=== PATIENT | male | born 1970 | race Caucasian/White ===

== ENCOUNTER → 2023-06-25 15:33 | Outpatient (REF) | payer BC, SELFPAY | LOC: HWRAD 15:33 | PROVIDERS: ATTENDING PHYSICIAN Family Medicine | DX: J40 Bronchitis, not specified as acute or chronic (principal); J45.41 Moderate persistent asthma with (acute) exacerbation; J01.40 Acute pansinusitis, unspecified | CPT/HCPCS: 71046 ==

== ENCOUNTER → 2023-07-26 15:48 | Outpatient (REF) | payer BC, SELFPAY | LOC: HWRAD 15:48 | PROVIDERS: ATTENDING PHYSICIAN Family Medicine | DX: J40 Bronchitis, not specified as acute or chronic (principal); J01.40 Acute pansinusitis, unspecified | CPT/HCPCS: 71046 ==

== ENCOUNTER → 2023-09-02 06:38 | Day surgery (SDC) | payer BC, SELFPAY | LOC: GI 06:38 | PROVIDERS: ATTENDING PHYSICIAN Internal Medicine | DX: R19.5 Other fecal abnormalities (principal); Z12.11 Encounter for screening for malignant neoplasm of colon; D12.3 Benign neoplasm of transverse colon; D12.5 Benign neoplasm of sigmoid colon; K63.5 Polyp of colon | CPT/HCPCS: 45385; 45380; 88305 ==

== ENCOUNTER → 2023-09-20 13:50 | Outpatient (REF) | payer BC, SELFPAY | LOC: HWRCS 13:50 | PROVIDERS: ATTENDING PHYSICIAN Internal Medicine Cardiovascular Disease; FAMILY PHYSICIAN Family Medicine | DX: R01.1 Cardiac murmur, unspecified (principal); I10 Essential (primary) hypertension | CPT/HCPCS: 93306 ==

== ENCOUNTER 2023-09-26 06:42 | Day surgery (SDC) | payer BC, SELFPAY ==
[2023-09-26] VITALS (9 sets, daily range): BP systolic 109–127; BP diastolic 56–77; BMI 24.9
[2023-09-26 07:17] LABS: Hematocrit 38.6 % (39.0-52.0); Hemoglobin 13.5 g/dL (13.0-18.0); Mean Corpuscular Hgb 26.9 pg (27.0-31.0); Mean Corpuscular Volume 76.9 fL (80.0-94.0); Platelet Count 247 10^3/uL (130-400); Red Blood Cell Count 5.02 10^6/uL (4.70-6.10); Red Cell Dist. Width 14.1 % (11.5-14.5); White Blood Cell Count 5.3 10^3/uL (4.8-10.8)
[2023-09-26 07:28] LABS: Blood Urea Nitrogen 20 mg/dl (9-20); Calcium 9.4 mg/dl (8.4-10.2); Carbon Dioxide 24 mmol/L (22-30); Chloride 109 mmol/L (98-107); Estimated Creatinine Clearance 112 ml/min; Glucose 108 mg/dl (70-99); Potassium 4.6 mmol/L (3.5-5.1); Sodium 139 mmol/L (135-145); eGFR > 60.00
[2023-09-26] MEDS: LOW STRENGTH ASPIRIN 324 MG PO (07:54)
--- NOTE | 2023-09-26 09:19 | ITS.CL.CATH ---
[employer] - Catheterization
Cardiac Catheterization
Procedure Report:
LEFT AND RIGHT HEART CATHETERIZATION
Date of Procedure: September 26, 2023
Referring: Anthony Simmons
PROCEDURES:
1. Left heart catheterization, coronary angiogram.
2. Right heart catheterization.
3. Ultrasound-guided access
INDICATION: Severe mitral regurgitation, preoperative for mitral valve repair/replacement
ACCESS:
1. Right radial artery, 6 1 sheath, under ultrasound guidance.
2. Right brachial vein, 6 Setswana sheath
HEMODYNAMICS : (mmHg)
RA (m) : 9
RV (s/d,m) : 26/, 9
PA (s/d, m) : 25/, 17
PCWP (m) : 16
PA saturation: 67.7% on room air
AO saturation: 95.0% on room air
RA saturation: 64.8% on room air
Cardiac Output : 4.49 L/min
Cardiac Index : 2.03 L/min/m-2
Systemic vascular resistance: 1086 dsc^(-5)
Pulmonary vascular resistance: 1.01 ritchie unit
Heart rate: 54 bpm
AO (s/d) : 105/60
LV (s/d) : 97/10
LVEDP : 20
CORONARY FINDINGS
DOMINANCE: Codominant
LEFT MAIN: Left main artery is a large-caliber vessel gives rise to the left anterior descending artery and the left circumflex artery along with a small ramus intermedius branch. Angiographically normal coronary artery.
LEFT ANTERIOR DESCENDING: The left anterior descending artery is a medium to large caliber vessel which gives rise to 1 major diagonal branch as it courses to the anterior interventricular groove and wraps around the apex. Angiographically normal
vessel
CIRCUMFLEX: The left circumflex artery is a medium to large caliber, codominant vessel which gives rise to 2 major obtuse marginal branches and a little left posterior descending artery. Angiographically normal coronary.
RAMUS INTERMEDIUS: The ramus intermedius artery is a small caliber vessel with no angiographic coronary artery disease.
RIGHT CORONARY ARTERY: The right coronary artery is a small caliber, co-dominant vessel with no angiographic coronary artery disease
SEDATION: 45 minutes of procedural sedation was utilized. An independent medical device was present to assist with and help manage the patient's level of consciousness and physiologic status.
RADIATION SUMMARY: Fluoro Time (min): 4.7, Dose (mGy): 231.96, DAP (Gy.cm2) : 17.16
Closure Device:
1. Vascular band over the right radial artery, 10 cc of air.
2. Manual pressure was held over the right brachial venous access site with successful hemostasis.
CONCLUSIONS
1. No obstructive coronary artery disease.
2. Elevated right and left-sided filling pressures with normal cardiac output.
RECOMMENDATIONS
1. Ongoing management of cardiovascular risk factors.
2. Wean radial band per protocol.
3. Patient is scheduled to see Dr. Lopez Desai next September for surgical evaluation.
Copy to: Anthony Simmons MD and Lopez Desai MD
Jeana Ramos MD, [facility], [facility]
== END 2023-09-26 13:31 | disposition home or self-care (01) ==
LOC: CATH 06:42
PROVIDERS: Internal Medicine Interventional Cardiology; ATTENDING PHYSICIAN Internal Medicine Cardiovascular Disease; FAMILY PHYSICIAN Family Medicine; OTHER PHYSICIAN Internal Medicine Cardiovascular Disease
DX: I08.3 Combined rheumatic disorders of mitral, aortic and tricuspid valves (principal); I08.8 Other rheumatic multiple valve diseases; I70.0 Atherosclerosis of aorta; I31.39 Other pericardial effusion (noninflammatory)
CPT/HCPCS: 93312; 93320; 93325; 99152; 99153; 80048; 85027; 93460; C1894; Q9967

== ENCOUNTER → 2023-10-09 11:40 | Outpatient (REF) | payer BC, SELFPAY | LOC: RAD 11:40 | PROVIDERS: ATTENDING PHYSICIAN Thoracic Surgery (Cardiothoracic Vascular Surgery) | DX: I34.0 Nonrheumatic mitral (valve) insufficiency (principal) | CPT/HCPCS: 71275; 74174; Q9967 ==

== ENCOUNTER 2023-10-14 05:08 | Inpatient (IN) | payer BC, SELFPAY ==
[2023-10-08 08:31] VITALS: BMI 25.3
[2023-10-08 09:37] LABS: INR 1.03; PT 13.3 Sec (11.4-14.6)
[2023-10-08 09:38] LABS: APTT 29.7 Sec (23.4-35.0)
[2023-10-08 09:52] LABS: ALT (SGPT) 19 U/L (0-50); AST (SGOT) 25 U/L (17-59); Albumin 4.3 g/dl (3.5-5.0); Alkaline Phosphatase 58 U/L (38-126); Blood Urea Nitrogen 16 mg/dl (9-20); Calcium 9.7 mg/dl (8.4-10.2); Carbon Dioxide 29 mmol/L (22-30); Chloride 107 mmol/L (98-107); Estimated Creatinine Clearance 111 ml/min; Glucose 105 mg/dl (70-99); Potassium 4.5 mmol/L (3.5-5.1); Sodium 139 mmol/L (135-145); Total Bilirubin 0.7 mg/dl (0.2-1.3); Total Protein 6.8 g/dl (6.3-8.2); eGFR > 60.00
[2023-10-08 09:55] LABS: % Basophils 0.9 % (0-2); % Eosinophils 2.2 % (0-6); % Immature Granulocytes 0.2 % (0-0.5); % Lymphocytes 33.3 % (20.5-51.1); % Monocytes 6.9 % (1.7-9.3); % Neutrophils 56.5 % (42.2-75.2); Absolute Basophils 0.1 10^3/uL (0-0.2); Absolute Eosinophils 0.1 10^3/uL (0-0.7); Absolute Lymphocytes 1.8 10^3/uL (1.2-3.4); Absolute Monocytes 0.4 10^3/uL (0.1-0.6); Hematocrit 41.4 % (39.0-52.0); Hemoglobin 13.9 g/dL (13.0-18.0); Mean Corp Hgb Conc. 33.6 g/dL (33.0-37.0); Mean Corpuscular Volume 80.4 fL (80.0-94.0); Mean Platelet Volume 10.1 fL (7.4-10.4); Nucleated Red Blood Cells % 0 % (-); Platelet Count 227 10^3/uL (130-400); Red Blood Cell Count 5.15 10^6/uL (4.70-6.10); Red Cell Dist. Width 13.6 % (11.5-14.5); White Blood Cell Count 5.3 10^3/uL (4.8-10.8)
[2023-10-08 10:20] LABS: Glycohemoglobin (HgbA1c) 5.5 % (4.0-5.6)
--- NOTE | 2023-10-08 10:52 | CM ---
spoke to pt in PAT's we disc used preop MVR teaching including lifting and driving restrictions. he is prev indep, lives with his in a 2 story home with 7 steps to enter. he has the ct surgery book, soap and instructions. he is agreeable to a
f/u visit from the ct transitional care nurse after dc. cm role explained and all questions answered, gustavo nis for MVR via [employer] 10/13.
[2023-10-08 12:17] LABS: Urine Albumin Negative (Neg - Trace); Urine Bilirubin Negative (Negative); Urine Character Clear (Clear); Urine Color Yellow; Urine Glucose Negative (Negative); Urine Ketone Negative (Negative); Urine Leukocyte Negative (Negative); Urine Nitrite Negative (Negative); Urine Occult Blood Negative (Negative); Urine Specific Gravity 1.015 (<1.030); Urine Urobilinogen Negative (Neg - 1+); Urine pH 6.5 (5.0-9.0)
--- NOTE | 2023-10-13 21:17 | W.PN.CT ---
Assessment / Plan
-
Assessment:
-S/P Right mini thoracotomy with right femoral artery and vein cannulation under NELSON guidance/Radical mitral valve repair (quadrangular resection of the medial portion of P2 on to P3 with primary repair, cleft closure between P1 and P2, 40 mm band
annuloplasty), by Dr. Desai, 10/14/23, pod#1
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
-LVEF 65% per echo 09/26/23, 55-60% per intraop NELSON
-Small pericardial effusion per echo 09/26/23; no pericardial effusion per intraop NELSON
-HTN
-Sinus bradycardia per ekg 10/08/23
-Incidental findings on CT from 10/09/23: small right fissure pulmonary nodules (2.8-4.4 mm), small left adrenal nodule (7mm), B/L renal cysts
-Diverticulosis
-Colon polyps S/P hepatic flexure and sigmoid polypectomies (tubular adenoma), 09/02/23
-S/P Left ACL Repair, 08/22/21
-Acute postop blood loss/Anemia (received 500cc of cell saver blood intraop)
-Acute postop atelectasis
-Acute postop hypovolemia with subsequent hypervolemia
-Acute postop sinus bradycardia (as low as 53 bpm)
Plan:
-No major issues overnight. Hemodynamically and neurologically intact
-Successfully extubated in the OR on 10/14/23
-Weaned off Levophed gtt overnight, remains on insulin gtt per protocol
-Last CI , U/O since OR
-Cont. current meds (ASA, both Amiodarone and BB on hold given
-D/C'd zaira yesterday 10/13
-D/C'd A-line this AM @
-D/C'd ana paula this AM @ 0600
-Telemetry phase once off insulin today
-Monitor chest tube drainage: R pleural
-Maintain cordis
-Maintain temporary V wires (will pull before d/c home)
-OOB into chair/Ambulate
-Will obtain repeat echo to assess MV Repair prior to d/c home
Subjective
-
Date of Service: October 13, 2023
Objective Data
-
Lab Results
10/08/23 08:48
10/08/23 08:48
PT 13.3 Sec (11.4-14.6) 10/08/23 08:48
INR 1.03 10/08/23 08:48
APTT 29.7 Sec (23.4-35.0) 10/08/23 08:48
[2023-10-14] VITALS (16 sets, daily range): BP systolic 96–137; BP diastolic 62–99; BMI 24.0
[2023-10-14] MEDS: PROTONIX 40 MG PO (05:45)
[2023-10-14] MEDS: LOPRESSOR 25 MG PO (05:45)
[2023-10-14] MEDS: BACTROBAN 2% OINTMENT 1 APPLIC NASAL ×2 (05:46→19:48)
[2023-10-14] MEDS: MAGNESIUM OXIDE 500 MG PO (05:46)
--- NOTE | 2023-10-14 06:51 | W.CVOR.SURPR ---
CVOR Surgeon Immed Pre Op
-
I have examined this patient prior to performance of the scheduled procedure.
The patient's condition is unchanged from the time of the dictated/written History and
Physical and the patient is able to undergo the scheduled procedure.
MV repair
[2023-10-14 07:12] LABS: ACT+ - POC 101 Seconds (82-134)
[2023-10-14 07:24] LABS: Urine Albumin Negative (Neg - Trace); Urine Bilirubin Negative (Negative); Urine Character Clear (Clear); Urine Color Yellow; Urine Glucose Negative (Negative); Urine Ketone Negative (Negative); Urine Leukocyte Negative (Negative); Urine Nitrite Negative (Negative); Urine Occult Blood Trace (Negative); Urine Urobilinogen Negative (Neg - 1+)
--- NOTE | 2023-10-14 07:25 | PTCARENOTE ---
Prepped patient for MVR this AM. VSS. NPO since 1900 previous day. Clipped and chg wipes provided. Preop meds administered. Patient transported to [facility] at 0635
[2023-10-14 08:00] LABS: Urine Bacteria Few (Negative); Urine Squamous Cell 0-2 /LPF (Few)
[2023-10-14 08:01] LABS: Urine White Cell 0-2 /HPF (0-5)
[2023-10-14 08:23] LABS: ACT+ - POC 535 Seconds (82-134)
[2023-10-14 08:44] LABS: B.E. - POC -1.2 mmol/L; Glucose - POC 122 mg/dl (65-99); HCO3 - POC 25 mmol/L (21-29); Hematocrit - POC 37 % PCV (42-52); Hemodilution- POC Yes; Hemoglobin Calculated - POC 12.7; Ionized Calcium - POC 1.27 mmol/L (1.12-1.27); O2 Saturation %Calculated-POC 99.9 5 (92-96); PCO2 - POC 49 mmHg (35-45); PO2 - POC 285 mmHg (80-100); POC Comment PRE; Potassium - POC 3.9 mmol/L (3.6-5.0); Sodium - POC 136 mmol/L (135-145); pH - POC 7.32 (7.35-7.45)
[2023-10-14 08:55] LABS: ACT+ - POC 596 Seconds (82-134)
[2023-10-14 09:10] LABS: B.E. - POC 1.5 mmol/L; Glucose - POC 148 mg/dl (65-99); HCO3 - POC 30 mmol/L (21-29); Hematocrit - POC 29 % PCV (42-52); Hemodilution- POC Yes; Hemoglobin Calculated - POC 9.9; O2 Saturation %Calculated-POC 99.9 5 (92-96); PCO2 - POC 67 mmHg (35-45); PO2 - POC 323 mmHg (80-100); POC Comment CPB; Sodium - POC 136 mmol/L (135-145); pH - POC 7.26 (7.35-7.45)
[2023-10-14 09:21] LABS: ACT+ - POC 539 Seconds (82-134)
[2023-10-14 09:50] LABS: B.E. - POC 1.2 mmol/L; Glucose - POC 179 mg/dl (65-99); HCO3 - POC 26 mmol/L (21-29); Hematocrit - POC 33 % PCV (42-52); Hemodilution- POC Yes; Hemoglobin Calculated - POC 11.2; Ionized Calcium - POC 1.09 mmol/L (1.12-1.27); O2 Saturation %Calculated-POC 97.7 5 (92-96); PCO2 - POC 42 mmHg (35-45); PO2 - POC 98 mmHg (80-100); POC Comment CPB; Potassium - POC 5.8 mmol/L (3.6-5.0); Sodium - POC 137 mmol/L (135-145); pH - POC 7.41 (7.35-7.45)
[2023-10-14 10:02] LABS: ACT+ - POC 566 Seconds (82-134)
[2023-10-14 10:31] LABS: B.E. - POC -0.8 mmol/L; Glucose - POC 144 mg/dl (65-99); HCO3 - POC 25 mmol/L (21-29); Hematocrit - POC 35 % PCV (42-52); Hemodilution- POC Yes; Hemoglobin Calculated - POC 11.9; Ionized Calcium - POC 1.14 mmol/L (1.12-1.27); PCO2 - POC 45 mmHg (35-45); PO2 - POC 408 mmHg (80-100); POC Comment WARM; Potassium - POC 5.2 mmol/L (3.6-5.0); Sodium - POC 138 mmol/L (135-145); pH - POC 7.35 (7.35-7.45)
[2023-10-14 10:38] LABS: ACT+ - POC 109 Seconds (82-134)
--- NOTE | 2023-10-14 10:49 | W.PN.UPDATE ---
Update Note
Progress Note Update
IV fluids: 1000
U.O.:� 400
UF:� 2500
Blood:� None
Wires:� Ventricular
Inotropes:� None
Pressors:� Levophed
�
NEURO: pupils +3mm B/L
RESP: Extubated in the OR. Arrived on NRB. Mediastinal chest tubes to -20cm suction. Sanguineous drainage
CV: RRR +S1, S2, no S3, no�rub, no murmur. Dermabond to median sternotomy. RIJ w/Haskell locked @ 48cm.
ABD: round, soft, no BS
EXT: no edema, +2/4 DP pulses B/L, no femoral bruit, XX radial A-line intact
: Mosqueda with clear yellow urine
�
A/P: POD #0 s/p Radical mitral valve repair (quadrangular resection of the medial portion of P2 on to P3 with primary repair, cleft closure between P1 and P2, 40 mm band annuloplasty)
NELSON: EF�NML
- Monitor CT and urine output
- Follow up labs and CXR
- Wean levophed for maps >65
- Will start ASA tonight
- EKG pending and will send to cards
-Will need follow-up TTE prior to discharge
- Cards consulted
�
# acute surgical blood loss anemia-expected
- trend CBC
�
# post-op Hyperglycemia
- insulin infusion x 24h
- hgb A1c 5.5
�
[2023-10-14 10:59] LABS: B.E. - POC -3.7 mmol/L; Glucose - POC 110 mg/dl (65-99); HCO3 - POC 23 mmol/L (21-29); Hematocrit - POC 34 % PCV (42-52); Hemodilution- POC Yes; Hemoglobin Calculated - POC 11.5; Ionized Calcium - POC 1.38 mmol/L (1.12-1.27); O2 Saturation %Calculated-POC 85.9 5 (92-96); PCO2 - POC 45 mmHg (35-45); PO2 - POC 57 mmHg (80-100); POC Comment POST; Potassium - POC 4.6 mmol/L (3.6-5.0); Sodium - POC 139 mmol/L (135-145); pH - POC 7.31 (7.35-7.45)
--- NOTE | 2023-10-14 11:13 | W.PN.CT.SURG ---
Addendum entered and electronically signed by Lopez Desai MD 10/14/23 11:30:
Products: 2 bowls of Cell Saver Blood was given back to the patient (500cc)
Original Note:
CT Surgery Operative Note
-
CARDIAC SURGERY OPERATIVE REPORT
Preoperative Diagnosis: Myxomatous mitral valve degeneration with severe mitral valve insufficiency secondary to prolapse and multiple torn cords
Postoperative Diagnosis: Same
Procedure(s) Performed:
1. Right mini thoracotomy with right femoral artery and vein cannulation under NELSON guidance
2. Radical mitral valve repair (quadrangular resection of the medial portion of P2 on to P3 with primary repair, cleft closure between P1 and P2, 40 mm band annuloplasty)
3. Placement temporary ventricular pacing wires
4. Trans esophageal echocardiography
Date of Surgery: 10/14/2023
Comorbidities:
1. 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
2. Preserved left ventricular ejection fraction of though end-systolic diameters was dilated to 5.5 cm under anesthesia
3. Hypertension
Attending Surgeon: Lopez Desai MD, MS
Assistants: Beti Grove PA-C (present and necessary for retraction, suctioning, exposure, suture management, wound closure, etc. under my direction)
Anesthesiology: Vasiliy Gan MD and Soco Kirby CRNA
Scrub and Circulating RNs: Gita Velazquez RN, Sarabjit Lundberg RN
Java User Interface Developer: Beti Salcido CCP
Anesthesia: GETA
EBL: per perfusion records
Products: None
CPB Time: 115 minutes
Aortic Cross Clamp Time: 86 minutes
Indication(s) for Procedures: This is a 53-year-old male who is otherwise healthy. He has severe mitral valve degeneration with insufficiency with a mildly dilated left ventricle with preserved left ventricular ejection fraction. Although he was
asymptomatic, I felt that he was bordering C2/D symptomatology given his echo changes. He therefore met class IIa bordering class I indication for surgical intervention.
Mitral Valve Description: Dilated valve, thickened segments of the anterior plate and posterior leaflet mostly towards P2 P3, P2 was abnormal with almost a split down the middle of the leaflet with multiple torn cords towards the free margin.
Mostly abnormality headed towards the medial aspect of the valve. P1 appeared to be normal. P3 was mildly thickened. There is a large clot between P1 and P2. Of note on transesophageal echocardiography the left circumflex was extremely close to
the annulus.
Implants:
1. 40 mm Olivier physio flex annuloplasty band, SN [id number]
Specimen:
1. Posterior leaflet, P2 scallop with multiple torn cords
Findings: Left ventricular ejection fraction preoperatively was 60%. His EF remained the same following surgery. Of note his left ventricle is mildly dilated with an end-systolic diameter of 5.5 cm. This remained the same postoperatively with no
new regional wall motion abnormalities. His mitral valve was abnormal in appearance, it almost had a split P2 scallop with multiple torn cords at the free margin. Most the abnormality headed towards the medial portion of the valve. The midportion
heading towards P3 was resected in a quadrangular resection pattern. This was then primarily repaired with plication of the leaflet in order to promote a downward sail effect. There is also a large cleft between P1 and P2 which was approximate
with 5-0 Prolene in an interrupted fashion. The valve was sized true to the anterior leaflet and also from trigone to trigone to a 40 mm band. A total of 13 nonpledgeted 2 Ethibond sutures were placed with care to avoid the left circumflex from
trigone to trigone. The band was secured to place with core knots. Dynamic inflation the left ventricle with ink test demonstrated a coaptation margin of the least 8 mm to 1 cm and a good posterior coaptation margin. Coming off of cardiopulmonary
bypass he had no residual mitral valve sufficiency, a mean gradient of 1 across the valve, and unobstructed LVOT with no systolic anterior motion. He did not require any blood products and did not require any inotropic support. He was in sinus
rhythm.
Description of Procedure: The patient was brought to the operating room and placed supine in the table with their right side bumped up and right arm down. Arterial and central access was performed by anesthesiology. The patient was prepped from chin
to toes in the typical sterile fashion. Trans esophageal evaluation of cardiac function and all valvular structures was conducted. Before commencing, a time out was performed by all members of the team. All were in agreement with the procedure and
laterality and I proceeded. A small right groin incision was made to expose the common femoral artery and vein. A total of 46,000 units of heparin was given. A 5-6 cm right lateral thoracotomy was performed over the 4th intercostal space verified by
visualization of the hilum. The common femoral artery and vein were cannulated under transesophageal guidance using open Seldinger technique. The arterial line was verified to have an appropriate bounce and pressure correlating with testing. Once
the ACT was above 400, retrograde autologous priming was done and we commenced cardiopulmonary bypass. Target core temperature was 34�C.
Carbon dioxide was used to flood the field. The course of the phrenic nerve was identified to prevent injury. The pericardium was opened and two stay sutures were placed to facilitate a ``pericardial table.�� The oblique sinus was developed followed
by the inter atrial groove. An antegrade root vent was inserted and secured with a pursestring suture. The pump flow and mean arterial pressure were lowered and an aortic cross clamp was applied to the ascending aorta. A total of 1.2L initial dose
of Antegrade cardioplegia was delivered. We had rapid electro myocardial quiescence at 400 cc of cardioplegia. The ventricle was monitored for distension by echocardiogram during this time. The left atrium was incised and enlarged. A left atrial
lift retractor was placed. The mitral valve was inspected. The mitral valve was repaired as described above. The left atriotomy was closed with 3-0 prolene in a running fashion leaving a ventricular vent in place to de-air. After filling the heart,
the vent was removed and the prolene was secured with a corknot. Unipolar ventricular pacing wire was placed on the base of the right ventricle. The patient was placed into Trendelenburg position and pump flows were lowered. The clamp was slowly
removed with the root vent turned on. De-airing maneuvers were performed. We started to rewarm with a target of 36.5�C.
As the heart recovered, the mitral valve and ventricular function were assessed under transesophageal echocardiogram. The LV vent and root vents were removed. Once weaning parameters were satisfactory, cardiopulmonary bypass flow was lowered until
we were off cardiopulmonary bypass the mitral valve was inspected again. All surgical sites were inspected for hemostasis and appeared appropriate. The lines were clamped and the arterial was relocated to the venous cannula to give back volume. A
test dose of protamine was delivered and patient was monitored for any adverse reactions followed by complete protamine dosing. The femoral vessels were decannulated and repaired as indicated. The pericardium was approximated with 2-0 ethibond
sutures secured with corknots. There was some minor oozing at the lower pericardial stay sutures site along the chest wall which was visualized with a 10 mm 30 degree scope. I performed direct ligation using the Endo Close device with good
hemostatic effect. One 19F Brennan drain remained in the pleural space and then threaded into the pericardial space. There was an excellent palpable distal to the DIRECTOR OF ORTHOPEDICS cannulation site. Local analgesia was injected to the thoracotomy. The incision was
closed in layers in a running fashion.
All instrument, sponge, and needle counts were confirmed to be correct x 2 at the end of the operation. The patient was transferred to the cardiac intensive care unit in critical but stable condition.
I, Dr. Lopez Desai, was present, scrubbed for, and performed all critical elements of this procedure.
Lopez Desai MD, MS
Cardiothoracic Surgeon
[facility]
This dictation was created using the [employer] dictation system. Please excuse any grammatical, typographical, or 'sound alike' errors
--- NOTE | 2023-10-14 11:40 | W.PN.CARDCBS ---
Addendum entered and electronically signed by Derek Jefferson DO 10/14/23 12:51:
I saw and examined the patient.
The Golf Course Laborer's note was reviewed and I agree with the note.
Comment:
Plan:
Stable status post mitral valve repair with minithoracotomy today.
He appears compensated from a cardiac perspective.
Continue telemetry and postoperative management as per surgery.
Discussed with nursing
Original Note:
Today's Communication / Plan
-
HD stable post-op
ECG stable
Will follow
Impression / Plan
-
PCP: Dr. Jaramillo
Cardiology: Dr. PONCHO Smimons
Impression:
s/p radical mitral valve repair via mini thoracotomy for myxomatous mitral valve with severe MR and prolapse 10/14/23
No obstructive CAD by cath 09/26/23
h/o HTN
NELSON 09/26/2023: EF 65%, normal regional wall motion, no thrombus detected in the left AAA, severe prolapse of the posterior mitral leaflet at P2/P3 junction with a torn cord, severe eccentric MR with peak E wave velocity 1.1 m/sec, mild aortic
regurgitation, mild TR, small pericardial effusion
Plan:
-Patient was seen as a new patient by Dr. Simmons in the office 08/28/23 for new murmur hear by his PCP in late May, no murmur was heard at a previous appointment in April. Patient was then sent for an echo and found to have severe MR with partial
flail. Patient then had a NELSON and was seen as an outpatient in the CT surgery team office. Patient presented to for elective mitral valve repair 10/14/23 and cardiology will follow post-op.
-Currently 123/64 on Levo at 1
-Precedex is off
-Extubated and pulse ox 97% on NRB.
-Received 1 unit PRBCs. Will follow labs.
-Post-op ECG reviewed by me showed sinus kai without ischemic changes.
Progress Note - Ball Winder
Subjective
Date of Service: October 14, 2023
Just arrived to CVICU
Objective
Labs:
Labs
Hgb 13.9 g/dL (13.0-18.0) 10/08/23 08:48
Hct 41.4 % (39.0-52.0) 10/08/23 08:48
Plt Count 227 10^3/uL (130-400) 10/08/23 08:48
PT 13.3 Sec (11.4-14.6) 10/08/23 08:48
INR 1.03 10/08/23 08:48
APTT 29.7 Sec (23.4-35.0) 10/08/23 08:48
Sodium 139 mmol/L (135-145) 10/08/23 08:48
Potassium 4.5 mmol/L (3.5-5.1) 10/08/23 08:48
BUN 16 mg/dl (9-20) 10/08/23 08:48
Creatinine 0.9 mg/dL (0.7-1.3) 10/08/23 08:48
Glucose 105 mg/dl (70-99) H 10/08/23 08:48
Vital Signs and I&O:
Vital Signs
Temp Pulse Resp BP Pulse Ox
97.8 F 77 16 137/99 98
10/14/23 05:30 10/14/23 05:45 10/14/23 05:30 10/14/23 05:45 10/14/23 05:30
Vital Signs
Temp Pulse Resp BP Pulse Ox
97.8 F 77 16 137/99 98
10/14/23 05:30 10/14/23 05:45 10/14/23 05:30 10/14/23 05:45 10/14/23 05:30
Intake & Output
10/12/23 10/13/23 10/14/23 10/15/23
06:59 06:59 06:59 06:59
Intake Total 14.8 / 14.8
Output Total 115 / 115
Balance -100.2 / -100.2
Physical Exam
Physical Exam
GEN: NAD. Awake, but not yet alert and oriented
HEENT: MMM
LUNGS: NRB, clear anterolaterally
CV: Reg, no murmur
ABD: soft, BS+, NT, ND
EXT: No clubbing, cyanosis, lesions or edema B/L
NEURO: Gross non-focal
SKIN: No rash
[2023-10-14 11:41] LABS: Glucose - Point of Care 104 mg/dl (70-99)
--- NOTE | 2023-10-14 11:45 | PTCARENOTE ---
Pt received from CVOR at 1125; Patient drowsy, responds to verbal stimulation; Pupils round, reactive, and equal; SB rhythm on monitor; VSS; Epicardial V-wires present with temporary pacemaker settings VVI 30/10.0/2.0; DP and radial pulses present;
Lungs diminished; 98% on 15L nonrebreather; CTx1 to -20 cm wall suction draining bloody drainage - no air leak, tidaling, or crepitus noted; Hypoactive BS; Mosqueda catheter in place draining clear, yellow urine; Surgical sites CDI; Left radial A-line,
Maurice Escamilla floated to 46 cm present - lines zeroed and level; PIVx1; Levo and insulin infusing - see nursing flow sheets for further details; See nursing documentation for further details.
CO: 7.01
CI: 3.20
SVR: [id number]
[2023-10-14 12:01] LABS: B.E. -3.9 mmol/L; HCO3 24.6 mmol/L (21-28); Ionized Calcium 1.26 mMOL/L (1.15-1.33); PCO2 60 mmHg (35-48); PO2 145 mmHg (83-108); Potassium 4.1 mMOL/L (3.5-5.1); Sodium 136 mMOL/L (136-145); pH 7.22 (7.35-7.45)
[2023-10-14 12:06] LABS: Hematocrit 36.7 % (39.0-52.0); Hemoglobin 12.5 g/dL (13.0-18.0); Platelet Count 151 10^3/uL (130-400)
[2023-10-14 12:13] LABS: INR 1.38; PT 16.8 Sec (11.4-14.6)
[2023-10-14 12:16] LABS: Blood Urea Nitrogen 15 mg/dl (9-20); Estimated Creatinine Clearance 115 ml/min; Glucose 106 mg/dl (70-99); Magnesium 3.1 mg/dl (1.6-2.3)
[2023-10-14] MEDS: ANCEF 10 IV ×2 (12:39→12:40)
[2023-10-14] MEDS: NSS 500 IV (12:40)
[2023-10-14] MEDS: NEURONTIN PO (12:40)
[2023-10-14] MEDS: ZOFRAN 4 MG IV ×2 (12:41→22:05)
--- NOTE | 2023-10-14 12:43 | CM ---
pt in OR today, cm to follow.
[2023-10-14 13:00] LABS: Glucose - Point of Care 135 mg/dl (70-99)
[2023-10-14 13:08] LABS: B.E. -3.7 mmol/L; HCO3 23.1 mmol/L (21-28); O2 Saturation % 98.9 % (94-98); PCO2 48 mmHg (35-48); PO2 95 mmHg (83-108); pH 7.29 (7.35-7.45)
[2023-10-14] MEDS: SODIUM BICARBONATE 50 MEQ IV (13:16)
--- NOTE | 2023-10-14 13:55 | CON.INTV ---
Consultation
Consultation Request
Date/Time Consultation Requested: 10/14/2023 - 1038
Date/Time Consultation Performed: 10/14/2023 - 1102
Requesting Provider: GILA Sue
Performing Provider: Alec Landin MD
Reason for Consultation: s/p MV-repair
Medical History
-
Chief Complaint: Elective mitral valve repair
History of Present Illness:
53-year-old male never-smoker with a past medical history of hypertension and colon polyps who presents with elective mitral valve repair. Patient known to cardiothoracic surgery with last office visit on 10/03/[address] Desai. He has a history
of mitral valve insufficiency with recent transthoracic echocardiogram showing severe MR with partial flail and prolapse segment of the posterior leaflet. LVEF preserved. LA volume index severely abnormal and RV function normal. On 09/26/2023, NELSON
showed prolapse and flail segment of the P2 heading into P3 junction. There is severe eccentric mitral valve insufficiency with no PFO. Left heart catheterization showed normal coronaries. He denies shortness of breath and has excellent baseline
functional status. Cardiothoracic surgical intervention was reviewed including its benefits and risks and patient has agreed to surgery. Today patient underwent right minithoracotomy with radical mitral valve repair. There was no immediate
postoperative complications, and he was transferred to the CVICU for further care with critical care services consulted for additional management/recommendations.
When I saw the patient he was in bed, endorsing nausea and recent vomiting of water, denies shortness of breath or chest pain. He is currently on Levophed at 1mcg/min with BP via left radial A-line 121/67 (BP via NIBP: 96/62). PAP 29/17 via R�IJ
PA-C. Heart rate: 55, CO/CI: 5.01/2.29. Right pleural chest tube in place with occasional level 1 airleak. He is currently on 2 L/min nasal cannula saturating 98%. He is on insulin gtt at 1.2 units/hr.
PMHx: Hypertension, colon polyps, mitral valve regurgitation
PSHx: Left knee ACL surgery, colonoscopy
Past Medical History
Past Medical History: Other (Above as per HPI)
Past Surgical History: Other (Above as per HPI)
Social History
Tobacco: Non-smoker (Never smoker)
Alcohol: Occasional
Drug: None
Personal:
Living: With Family (Spouse)
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
Family History
Family History: Hypertension (Father) and Other (Mother: Alzheimer's disease; father: CHF)
Allergies / Home Medications
Allergies
Allergy/AdvReac Type Severity Reaction Status Date / Time
No Known Allergies Allergy Verified 10/04/23 08:42
Home Medications
�Medication �Instructions �Recorded �Confirmed �Last Taken �Type
No Meds [No Current Medications] 09/26/23 10/04/23 Unknown History
Review of Systems
-
History Source: Patient
All other systems: Negative unless noted
Vitals / Labs / Diagnostic Testing
Vital Signs
Temp Pulse Resp BP Pulse Ox
96.6 F L 53 16 96/62 96
10/14/23 17:00 10/14/23 17:10 10/14/23 17:10 10/14/23 17:00 10/14/23 17:10
Lab Data
10/14/23 15:36
10/14/23 11:32
Laboratory Results
10/14/23 10/14/23
11:32 12:58
PT 16.8 H
INR 1.38
APTT 29.0
pH 7.22 L 7.29 L
pCO2 60 H 48
pO2 145 H 95
HCO3 24.6 23.1
O2 Delivery Level
Diagnostic Testing:
Physical Exam
-
HEENT: Normocephalic and Anicteric
Cardiovascular: S1/S2 and Peripheral Edema (Negative)
Respiratory: Wheeze (Negative), Rales (Right anterior hemithorax), Rhonchi (Negative) and Non-Labored Respirations
GI: Soft, Non Distended, Non Tender and Normal Bowel Sounds
Neurology: Awake, Tremors (Negative) and Other (Sleepy but answering all my questions appropriately)
Skin: Warm and Dry
General: Respiratory Distress (Negative), Fever (Negative), Chills (Negative) and Other (Appears uncomfortable/fatigued)
Assessment
-
Assessment: 53-year-old male non-smoker with a past medical history of hypertension and colon polyps who presents with elective mitral valve repair. Patient known to cardiothoracic surgery with last office visit on 10/03/[address] Desai. He has
a history of mitral valve insufficiency with recent transthoracic echocardiogram showing severe MR with partial flail and prolapse segment of the posterior leaflet. LVEF preserved. LA volume index severely abnormal and RV function normal. On
09/26/2023, NELSON showed prolapse and flail segment of the P2 heading into P3 junction. There is severe eccentric mitral valve insufficiency with no PFO. Left heart catheterization showed normal coronaries. He denies shortness of breath and has
excellent baseline functional status. Cardiothoracic surgical intervention was reviewed including its benefits and risks and patient has agreed to surgery. On 10/14/2023, patient underwent right minithoracotomy with radical mitral valve repair.
There was no immediate postoperative complications, and he was transferred to the CVICU for further care with critical care services consulted for additional management/recommendations.
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
Impression:
#Severe mitral valve insufficiency secondary to prolapse and multiple torn cords s/p right minithoracotomy + radical mitral valve repair (POD #0)
#Anemia (mild)
#Acute respiratory failure with hypercapnia - improved
#Nausea/vomiting, likely related to recent anesthesia
#History of right ureteral 4 mm stone (2010)
#History of hypertension
Plan:
Patient was already extubated prior to arriving in CVICU
Continue supplemental O2 and titrate to keep SpO2 >90-94%
prn nebulized bronchodilators
Trend blood gas to assure pCO2 and pH are stable - can get VBG tomorrow AM unless pt becomes altered/less responsive then obtain stat ABG
Pulmonary artery catheter parameters will be followed
Pressors/antihypertensive/inotropes/diuretics will be provided as needed
Maintain MAP>65
Replete electrolytes with K>4, Mg>2
Monitor chest tube output (right pleural chest tube x1)
Monitor hemoglobin
Monitor platelet count and coags
Transfuse blood product if needed to maintain Hb>7g/dL, plt>50k (given post-operative status)
CT surgery managing chest tubes
Monitor blood sugar to maintain euglycemia with goal BG 140-180
Insulin drip per protocol
Antiemetics as needed; monitor QTc (451ms via EKG from today)
Aspiration precautions
DVT prophylaxis
Early nutrition
Early mobilization
Critical care statement: A total of 41 minutes of critical care time was provided for this patient today. This includes management of ventilator, spontaneous breathing trial, arterial blood gases, pressors, of unstable vital signs, evaluation of the
patient at bedside, reviewing the patient's pertinent medical records including radiographs, microbiology, laboratory evaluations, and discussion with primary team and critical care nursing.
[2023-10-14 14:03] LABS: Glucose - Point of Care 132 mg/dl (70-99)
[2023-10-14] MEDS: LR 250 IV ×3 (14:37→16:09)
[2023-10-14] MEDS: TYLENOL PO (14:54)
[2023-10-14 14:58] LABS: Glucose - Point of Care 117 mg/dl (70-99)
[2023-10-14] MEDS: NEURONTIN 100 MG PO ×2 (15:03→22:12)
[2023-10-14] MEDS: LOW STRENGTH ASPIRIN 81 MG PO (15:03)
[2023-10-14] MEDS: DILAUDID 0.25 MG IV (15:04)
[2023-10-14] MEDS: ROXICODONE 5 MG PO ×2 (15:04→22:13)
--- NOTE | 2023-10-14 15:30 | PTCARENOTE ---
Patient SR and SB on monitor; VSS; assessment remains unchanged; Pt given pain medication - resting comfortably with at bedside.
[2023-10-14 15:42] LABS: Hematocrit 35.9 % (39.0-52.0); Hemoglobin 12.3 g/dL (13.0-18.0); Platelet Count 173 10^3/uL (130-400)
[2023-10-14 16:07] LABS: Glucose - Point of Care 122 mg/dl (70-99)
--- NOTE | 2023-10-14 16:12 | PTCARENOTE ---
250 ml LR bolus given x3 times; CVP and MAP improving. Sodium Bicarb ordered and given x1 following results of second ABG; Pt weaned down to 4L NC now;
[2023-10-14] MEDS: TORADOL 15 MG IV (16:24)
[2023-10-14] MEDS: ANCEF 5 IV (16:25)
[2023-10-14 17:45] LABS: Glucose - Point of Care 108 mg/dl (70-99)
[2023-10-14] MEDS: REGLAN 10 MG IV (17:47)
--- NOTE | 2023-10-14 18:22 | PTCARENOTE ---
Pt had an episode of nausea/vomiting around 1730 - vomited a small amount of bile emesis. CVLOLA Moralez notified - IV Reglan ordered and given with successful relief of nausea. Afterwards right pleural chest tube noted to have occasional, intermittent
+1 air leak - CVLOLA Moralez notified and aware. Order given to remove Maple dung catheter, removed at bedside with no complications.
[2023-10-14] MEDS: SENOKOT-S 1 TABLET PO (19:48)
[2023-10-14 19:57] LABS: Glucose - Point of Care 147 mg/dl (70-99)
--- NOTE | 2023-10-14 20:00 | PTCARENOTE ---
assumed care of pt from previous RN. pt A&Ox4, resting in bed at time of assessment. sinus bradycardia on tele-monitor. temp epicardial v-wires w/ back up settings //. palpable peripheral pulses. no edema noted. CTx1 (R pleural) to -20cm wall
suction. +[address] PA aware. POx 97% on 2 L NC. abd s/n, hypoactive BS. pt tolerating ice chips and sips of water w/ meds at this time. goss catheter draining clear, yellow urine. all surgical sites stable, CDI. R IJ cordis
w/ KVO. PIV intact. plan of care discussed w/ pt, pt in agreement. see worklist for complete nursing assessment, interventions, VS, and I&Os.
[2023-10-14 22:12] LABS: Glucose - Point of Care 111 mg/dl (70-99)
[2023-10-14] MEDS: TYLENOL 1000 MG PO (22:12)
[2023-10-15] VITALS (14 sets, daily range): BP systolic 94–118; BP diastolic 58–76; PULSE 67; O2SAT 96–97; BMI 24.1
--- NOTE | 2023-10-15 | PTCARENOTE ---
assessment remains unchanged. VSS. sinus kai on tele-monitor. CT drainage within appropriate limits.
[2023-10-15 00:07] LABS: Glucose - Point of Care 116 mg/dl (70-99)
[2023-10-15] MEDS: ANCEF 5 IV ×2 (01:01→08:37)
--- NOTE | 2023-10-15 01:45 | PTCARENOTE ---
VS done. See flowsheet. Toradol given as scheduled.
[2023-10-15 02:12] LABS: Glucose - Point of Care 117 mg/dl (70-99)
[2023-10-15 03:23] LABS: Ionized Calcium 1.15 mMOL/L (1.15-1.33)
[2023-10-15 03:30] LABS: Hematocrit 34.5 % (39.0-52.0); Hemoglobin 11.7 g/dL (13.0-18.0); Mean Corp Hgb Conc. 33.9 g/dL (33.0-37.0); Mean Corpuscular Hgb 26.6 pg (27.0-31.0); Mean Corpuscular Volume 78.4 fL (80.0-94.0); Mean Platelet Volume 10.2 fL (7.4-10.4); Platelet Count 158 10^3/uL (130-400); Red Cell Dist. Width 13.7 % (11.5-14.5)
[2023-10-15 03:57] LABS: Blood Urea Nitrogen 23 mg/dl (9-20); Calcium 9.1 mg/dl (8.4-10.2); Carbon Dioxide 25 mmol/L (22-30); Chloride 109 mmol/L (98-107); Estimated Creatinine Clearance 115 ml/min; Glucose 111 mg/dl (70-99); Magnesium 2.2 mg/dl (1.6-2.3); Potassium 4.3 mmol/L (3.5-5.1); Sodium 138 mmol/L (135-145); eGFR > 60.00
--- NOTE | 2023-10-15 04:00 | PTCARENOTE ---
VSS. GARCIA labs collected and sent.
--- NOTE | 2023-10-15 04:09 | W.PN.CT ---
Today's Communication / Plan
-
Plan:
-No major issues overnight. Hemodynamically and neurologically intact
-Successfully extubated in the OR on 10/14/23
-Weaned off Levophed gtt overnight, remains on insulin gtt per protocol
-Last CI 2.29, U/O since OR 960 mL
-Acute postop ekg changes c/w acute pericarditis, +rub. Not in excruciating pain, rates pain 06/04. Started on Toradol
-Cont. current meds (ASA, both Amiodarone and BB on hold given bradycardia and postop hypotension)
-D/C'd zaira yesterday 10/13
-D/C'd A-line this AM @ 0430
-D/C'd goss this AM @ 0600
-Telemetry phase once off insulin today
-Monitor chest tube drainage: R pleural 110/220
-Maintain cordis
-Maintain temporary V wires (will pull before d/c home)
-OOB into chair/Ambulate
-Will obtain repeat echo to assess MV Repair prior to d/c home
Assessment / Plan
-
Assessment:
-S/P Right mini thoracotomy with right femoral artery and vein cannulation under NELSON guidance/Radical mitral valve repair (quadrangular resection of the medial portion of P2 on to P3 with primary repair, cleft closure between P1 and P2, 40 mm band
annuloplasty), by Dr. Desai, 10/14/23, pod#1
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
-LVEF 65% per echo 09/26/23, 55-60% per intraop NELSON
-Small pericardial effusion per echo 09/26/23; no pericardial effusion per intraop NELSON
-HTN
-Sinus bradycardia per ekg 10/08/23
-Incidental findings on CT from 10/09/23: small right fissure pulmonary nodules (2.8-4.4 mm), small left adrenal nodule (7mm), B/L renal cysts
-Diverticulosis
-Colon polyps S/P hepatic flexure and sigmoid polypectomies (tubular adenoma), 09/02/23
-S/P Left ACL Repair, 08/22/21
-Acute postop blood loss/Anemia (received 500cc of cell saver blood intraop)
-Acute postop atelectasis
-Acute postop hypovolemia with subsequent hypervolemia
-Acute postop sinus bradycardia (as low as 53 bpm)
-Acute postop ekg changes c/w acute pericarditis (+rub)
Discussed patient care with: Cardiology, Nursing, Respiratory Therapy, Pharmacy and Care Team
Subjective
Procedure
S/P Right mini thoracotomy with right femoral artery and vein cannulation under NELSON guidance/Radical mitral valve repair (quadrangular resection of the medial portion of P2 on to P3 with primary repair, cleft closure between P1 and P2, 40 mm band
annuloplasty), by Dr. Desai, 10/14/23
-
Date of Service: October 15, 2023
Pt c/o incisional pain, otherwise feels well
Objective Data
-
Lab Results
10/15/23 03:15
10/15/23 03:15
PT 16.8 Sec (11.4-14.6) H 10/14/23 11:32
INR 1.38 10/14/23 11:32
APTT 29.0 Sec (23.4-35.0) 10/14/23 11:32
Vital Signs
Vital Signs
Temp Pulse Resp BP Pulse Ox
99 F 55 12 94/64 97
10/15/23 03:00 10/15/23 04:00 10/15/23 04:00 10/15/23 04:00 10/15/23 03:00
CT Intake/Output/Weight
0810/14/23 10/15/23
06:59 18:59 06:59
Intake Total 1186.4 / 1302.3 115.9 / 1302.3
Output Total 785 / 1150 365 / 1150
Balance 401.4 / 152.3 -249.1 / 152.3
SaO2: 97 (2L)
Physical Exam
-
General: Awake, Oriented and AOx3
Cardiovascular: Regular rate & rhythm, No Murmurs, No Rub and No Gallop
Respiratory: Decreased Breath Sounds (at bases, otherwise clear)
Sternum: Stable
Incision: Clean, Dry, Intact and Dressing Intact
Extremities: No Edema
Data Reviewed
-
Lab Results: Results Reviewed
Medications: Active Meds Reviewed
Chest X-Ray: Report Reviewed and Image Reviewed
ECG: Report Reviewed and Image Reviewed
[2023-10-15 04:22] LABS: Glucose - Point of Care 111 mg/dl (70-99)
--- NOTE | 2023-10-15 04:30 | ECGCV ---
<Isiah Parikh> notified of ECG critical value identified by electronic interpretation on ECG completed on <10/15/23>, at <0430>.
[2023-10-15] MEDS: TORADOL 15 MG IV ×3 (04:56→18:03)
[2023-10-15] MEDS: CALCIUM CHLORIDE 10% SYRINGE 50 ML IV (04:56)
[2023-10-15] MEDS: CALCIUM CHLORIDE 10% SYRINGE 50 MG IV (04:56)
[2023-10-15 05:04] LABS: Glucose - Point of Care 102 mg/dl (70-99)
[2023-10-15] MEDS: TYLENOL 1000 MG PO ×3 (06:03→21:40)
[2023-10-15 06:06] LABS: Glucose - Point of Care 108 mg/dl (70-99)
[2023-10-15 07:15] LABS: Glucose - Point of Care 117 mg/dl (70-99)
--- NOTE | 2023-10-15 07:33 | W.PN.ANS.POP ---
Anesthesia Post Operative
- Anesthesia Post Op Note
Vital Signs Stable-See Nursing Note: Yes
Airway Patent: Yes
Adequate Pain Control: Yes
Change in Mental Status: No
Current Postoperative Nausea & Vomiting: No
Anesthesia Complications: No
General Anesthetic Recall: No
Unplanned Admission: No
Post Op Hydration Adequate: Yes
[2023-10-15] MEDS: NEURONTIN 100 MG PO ×3 (07:50→21:39)
[2023-10-15] MEDS: LOW STRENGTH ASPIRIN 81 MG PO (07:50)
[2023-10-15] MEDS: PROTONIX 40 MG PO (07:50)
[2023-10-15] MEDS: LIDOCAINE 4% PATCH 1 PATCH TOPICAL (07:50)
[2023-10-15] MEDS: LASIX 40 MG IV (07:50)
[2023-10-15] MEDS: VITAMIN C 500 MG PO (07:50)
[2023-10-15] MEDS: BACTROBAN 2% OINTMENT 1 APPLIC NASAL ×2 (07:51→21:30)
[2023-10-15] MEDS: MAGNESIUM OXIDE 500 MG PO ×2 (07:51→21:30)
[2023-10-15] MEDS: NSS IV (07:51)
[2023-10-15] MEDS: SENOKOT-S 1 TABLET PO ×2 (07:51→21:31)
--- NOTE | 2023-10-15 07:57 | PTCARENOTE ---
Assumed care of patient from evening or night nurse supervisor RN. AAO x 3 sitting up in the chair. Pain In RT lateral chest area. SR w/ BBB on monitor. Epicardial wire to back up of 30. No pacing at present. 2 L NC 98%. IS to 1000. Rt Pleural chest tube intact,
to - 20 cm suction. No crepitus noted. No air leak at present. Surgical sites all c,d,i. Pulses palpable. Plan for day discussed.
[2023-10-15] MEDS: COLCHICINE 0.3 MG PO (08:36)
[2023-10-15 08:42] LABS: Glucose - Point of Care 107 mg/dl (70-99)
--- NOTE | 2023-10-15 09:28 | W.PN.CARDCBS ---
Today's Communication / Plan
-
Cont post op care
Impression / Plan
-
.
PCP: Dr. Jaramillo
Cardiology: Dr. PONCHO Simmons
Impression:
s/p radical mitral valve repair via mini thoracotomy for myxomatous mitral valve with severe MR and prolapse 10/14/23
No obstructive CAD by cath 09/26/23
Hx HTN
NELSON 09/26/2023: EF 65%, normal regional wall motion, no thrombus detected in the left AAA, severe prolapse of the posterior mitral leaflet at P2/P3 junction with a torn cord, severe eccentric MR with peak E wave velocity 1.1 m/sec, mild aortic
regurgitation, mild TR, small pericardial effusion
Plan:
-Patient was seen as a new patient by Dr. Simmons in the office 08/28/23 for new murmur hear by his PCP in late May, no murmur was heard at a previous appointment in April. Patient was then sent for an echo and found to have severe MR with partial
flail. Patient then had a NELSON and was seen as an outpatient in the CT surgery team office. Patient presented to for elective mitral valve repair 10/14/23 and cardiology will follow post-op.
Continues to improve post op
Cont post op care
Echo prior to d/c as per CT surgery.
Hb 11.7, down slightly, had received 1 unit PRBCs. Cont to monitor H/H
Discussed with nursing
Progress Note - Subassembler
Subjective
Date of Service: October 15, 2023
Pt seen and examined. No complaints. No chest pain or shortness of breath.
Objective
Labs:
10/15/23 03:15
10/15/23 03:15
Labs
Hgb 11.7 g/dL (13.0-18.0) L 10/15/23 03:15
Hct 34.5 % (39.0-52.0) L 10/15/23 03:15
Plt Count 158 10^3/uL (130-400) 10/15/23 03:15
PT 16.8 Sec (11.4-14.6) H 10/14/23 11:32
INR 1.38 10/14/23 11:32
APTT 29.0 Sec (23.4-35.0) 10/14/23 11:32
Sodium 138 mmol/L (135-145) 10/15/23 03:15
Potassium 4.3 mmol/L (3.5-5.1) 10/15/23 03:15
BUN 23 mg/dl (9-20) H 10/15/23 03:15
Creatinine 0.9 mg/dL (0.7-1.3) 10/15/23 03:15
Glucose 111 mg/dl (70-99) H 10/15/23 03:15
Vital Signs and I&O:
Vital Signs
Temp Pulse Resp BP Pulse Ox
99.2 F 59 18 111/72 98
10/15/23 07:31 10/15/23 08:00 10/15/23 07:31 10/15/23 07:27 10/15/23 08:28
Vital Signs
Temp Pulse Resp BP Pulse Ox
99.2 F 59 18 111/72 98
10/15/23 07:31 10/15/23 08:00 10/15/23 07:31 10/15/23 07:27 10/15/23 08:28
Intake & Output
10/13/23 10/14/23 10/15/23 10/16/23
06:59 06:59 06:59 06:59
Intake Total 1340.6 / 1340.6 253.5 / 253.5
Output Total 1265 / 1265
Balance 75.6 / 75.6 233.5 / 233.5
Physical Exam
Physical Exam
General: No acute distress, AAOX3
Neck: Negative JVD
Heart: Regular, Negative S3 positive S1/S2, Negative S4, No murmur
Lungs: CTA b/l, negative wheezes/rales/rhonchi
Abd: Positive BS, NT/ND, neg rebound/rigidity/guarding
Ext: Negative cyanosis/clubbing/edema
Neuro: nonfocal
--- NOTE | 2023-10-15 09:42 | W.PN.INTV ---
Today's Communication / Plan
Recommendations
Up OOB as tolerated
Pain control
SpO2 goal >90-94%
Cardiac rehab consult
Patient has been transferred to CVICU�telemetry status. Painter Sign Maintenance/Pulmonary service will now sign off. Please reconsult if there are any additional questions/concerns, or if patient's respiratory status deteriorates.
Assessment
-
Assessment: 53-year-old male non-smoker with a past medical history of hypertension and colon polyps who presents with elective mitral valve repair. Patient known to cardiothoracic surgery with last office visit on 10/03/[address] Desai. He has
a history of mitral valve insufficiency with recent transthoracic echocardiogram showing severe MR with partial flail and prolapse segment of the posterior leaflet. LVEF preserved. LA volume index severely abnormal and RV function normal. On
09/26/2023, NELSON showed prolapse and flail segment of the P2 heading into P3 junction. There is severe eccentric mitral valve insufficiency with no PFO. Left heart catheterization showed normal coronaries. He denies shortness of breath and has
excellent baseline functional status. Cardiothoracic surgical intervention was reviewed including its benefits and risks and patient has agreed to surgery. On 10/14/2023, patient underwent right minithoracotomy with radical mitral valve repair.
There was no immediate postoperative complications, and he was transferred to the CVICU for further care with critical care services consulted for additional management/recommendations.
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
Impression:
#Severe mitral valve insufficiency secondary to prolapse and multiple torn cords s/p right minithoracotomy + radical mitral valve repair (POD #1)
#Anemia (mild)
#Acute respiratory failure with hypercapnia - improved
#Nausea/vomiting, likely related to recent anesthesia
#History of right ureteral 4 mm stone (2010)
#History of hypertension
Plan:
Patient was already extubated yesterday prior to arriving in CVICU
He is on room air breathing comfortably
Keep SpO2 >90-94%
prn nebulized bronchodilators
Trend blood gas to assure pCO2 and pH are stable - if pt becomes altered/less responsive then obtain stat ABG
Maintain MAP>65
Replete electrolytes with K>4, Mg>2
Monitor chest tube output (right pleural chest tube x1)
Monitor hemoglobin
Monitor platelet count and coags
Transfuse blood product if needed to maintain Hb>7g/dL, plt>50k (given post-operative status)
CT surgery managing chest tube
Monitor blood sugar to maintain euglycemia with goal BG 140-180
Insulin SQ supplementation as needed to maintain BG goal as above
Antiemetics as needed; monitor QTc (418ms via EKG from today)
Aspiration precautions
DVT prophylaxis
Early nutrition
Early mobilization
Patient has been transferred to CVICU�telemetry status. Painter Sign Maintenance/Pulmonary service will now sign off. Thank you for allowing us to be involved in the care of this patient. Please reconsult if there are any additional questions/concerns, or if
patient's respiratory status deteriorates.
Total time spent today was 55 minutes for this encounter. Time includes reviewing laboratory test/imaging results, reviewing pertinent medical records, obtaining and reviewing medical history, performing an appropriate exam, ordering medications,
tests and procedures. Time also includes documentation of this encounter, coordinating patient care and communicating with other healthcare professionals. Total time does not include separately billed tests performed on this date of service.
Data:
CXR 10/15/2023:
Interval removal of right Victor-Taj catheter, with right venous sheath present.
Tiny left apical pneumothorax.
Patchy atelectasis within both lower lungs.
Subjective Dataa
Subjective Data
Date of Service:
Date of Service: October 15, 2023
Chief Complaint: Painter Sign Maintenance Follow Up
Subjective:
Seen and evaluated today at bedside. Insulin drip is now off. He endorses right-sided rib pain. BP 115/71, heart rate 61 and he is saturating 94% on room air. He denies WONG, SOB, abdominal pain, nausea, vomiting, fevers or chills
Review of Systems
General: Other (Negative unless mentioned above)
Objective Data
Data Reviewed
Vital Signs / I&O / Oxygen:
Vital Signs
Temp Pulse Resp BP Pulse Ox
99.2 F 59 18 111/72 98
10/15/23 07:31 10/15/23 08:00 10/15/23 07:31 10/15/23 07:27 10/15/23 08:28
Intake and Output
10/14/23 10/15/23 10/16/23
06:59 06:59 06:59
Intake Total 1340.6 / 1340.6 253.5 / 253.5
Output Total 1265 / 1265
Balance 75.6 / 75.6 233.5 / 233.5
SaO2 98
Nasal Cannula flow liters per 2
minute
Physical Exam
General: Respiratory Distress (negative) and Comfortable
HEENT: Normocephalic and Anicteric
Cardiovascular: S1-S2 and Peripheral Edema (negative)
Respiratory: Wheeze (negative), Crackles (Right anterior hemithorax) and Non-Labored Respirations
GI: Soft, Non Distended, Non Tender and Normal Bowel Sounds
Neurology: Awake, Alert, Oriented and Tremors (negative)
Skin: Warm, Dry, Cyanosis (negative) and Jaundice (negative)
Labs/Micro/Reports
Lab Data
10/15/23 03:15
10/15/23 03:15
Laboratory Results
10/14/23 10/14/23
11:32 12:58
PT 16.8 H
INR 1.38
APTT 29.0
pH 7.22 L 7.29 L
pCO2 60 H 48
pO2 145 H 95
HCO3 24.6 23.1
O2 Delivery Level
--- NOTE | 2023-10-15 11:36 | PTCARENOTE ---
Received pt from [place] RN, Pt is Chen, DALER, VSS, discussed plan for day, Pt resting in chair.
[2023-10-15] MEDS: FERRLECIT 110 MG IV (13:49)
[2023-10-15] MEDS: FLEXERIL 5 MG PO (15:12)
--- NOTE | 2023-10-15 15:30 | PTCARENOTE ---
Pt is in NSR, VSS; pt ambulated in green with cardiac rehab; incentive spirometer encouraged; Nursing assessment unchanged from prior.
[2023-10-15] MEDS: ROXICODONE 5 MG PO ×2 (15:57→21:40)
--- NOTE | 2023-10-15 21:45 | PTCARENOTE ---
Report received from SHELLEY Berrios. Walking rounds done. VS done. Pt assessed. For assessment documentation, see flowsheet. at bedside.
Pt remains neuro intact. Speech clear, Awake, alert, oriented x 4. Pt placed on 2L/NC while in bed. Sats on room air in bed are 89-90%. 2L applied. Sats now 94-96%. BBS present. Decreased to B bases. Pt in SR, 60's. Audible heart tones. R lateral
CT to - 20 cm suction. For wound assessments, see flowsheets. Palpable pulses. V wire attached to temp pacer, VVI , rate 30, mA 10, sensitivity 2. Belly soft, nontender. Normoactive BS x 4. Pt has yet to void on shift. Has been voiding clear, yellow
urine. at bedside. To give Roxicodone 5 mg po for 7/10 R lateral CP.
[2023-10-16] VITALS (10 sets, daily range): BP systolic 99–126; BP diastolic 67–81; PULSE 70–74; O2SAT 96–97; BMI 24.2
--- NOTE | 2023-10-16 01:45 | PTCARENOTE ---
VS done. See flowsheet. Toradol given as scheduled.
--- NOTE | 2023-10-16 04:28 | DOWNTIME ---
There was a [employer] Client Event Set Up Specialist Downtime on 10/16/2023 from 0100 to 10/16/2023 at 0252. Downtime documentation of patient's care, including medication administrations, has been reconciled in the electronic record per guidelines. Refer to the
patient's paper chart under the miscellaneous tab to see printed paper medication records and downtime forms.
--- NOTE | 2023-10-16 04:43 | PTCARENOTE ---
VS done. See flowsheet. Lab work drawn and sent. Pt intermittently sleeping.
--- NOTE | 2023-10-16 04:54 | W.PN.CT ---
Today's Communication / Plan
-
Plan:
-No major issues overnight. Hemodynamically and neurologically intact
-Off all drips
-Acute postop ekg changes c/w acute pericarditis, +rub. Not in excruciating pain, rates pain 4/10. Started on Toradol and Colchicine
-Cont. current meds (ASA, Toradol, Colchicine; Amiodarone and BB on hold given bradycardia)
-Monitor chest tube drainage for possible d/c later today: R pleural 115/145
-Maintain cordis another day
-Maintain temporary V wires (will pull before d/c home)
-OOB into chair/Ambulate
-Will obtain repeat echo to assess MV Repair prior to d/c home
-Encourage use of IS
-OOB into chair/Ambulate
Assessment / Plan
-
Assessment:
-S/P Right mini thoracotomy with right femoral artery and vein cannulation under NELSON guidance/Radical mitral valve repair (quadrangular resection of the medial portion of P2 on to P3 with primary repair, cleft closure between P1 and P2, 40 mm band
annuloplasty), by Dr. Desai, 10/14/23, pod#2
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
-LVEF 65% per echo 09/26/23, 55-60% per intraop NELSON
-Small pericardial effusion per echo 09/26/23; no pericardial effusion per intraop NELSON
-HTN
-Sinus bradycardia per ekg 10/08/23
-Incidental findings on CT from 10/09/23: small right fissure pulmonary nodules (2.8-4.4 mm), small left adrenal nodule (7mm), B/L renal cysts
-Diverticulosis
-Colon polyps S/P hepatic flexure and sigmoid polypectomies (tubular adenoma), 09/02/23
-S/P Left ACL Repair, 6/28/22
-Acute postop blood loss/Anemia (received 500cc of cell saver blood intraop)
-Acute postop atelectasis
-Acute postop hypovolemia with subsequent hypervolemia
-Acute postop sinus bradycardia (as low as 53 bpm)
-Acute postop ekg changes c/w acute pericarditis (+rub)
Discussed patient care with: Cardiology, Nursing, Respiratory Therapy, Pharmacy and Care Team
Subjective
Procedure
S/P Right mini thoracotomy with right femoral artery and vein cannulation under NELSON guidance/Radical mitral valve repair (quadrangular resection of the medial portion of P2 on to P3 with primary repair, cleft closure between P1 and P2, 40 mm band
annuloplasty), by Dr. Desai, 10/14/23
-
Date of Service: October 16, 2023
C/O mild incisional pain, otherwise feels well
Objective Data
-
PT 16.8 Sec (11.4-14.6) H 10/14/23 11:32
INR 1.38 10/14/23 11:32
APTT 29.0 Sec (23.4-35.0) 10/14/23 11:32
Vital Signs
Vital Signs
Temp Pulse Resp BP Pulse Ox
97.8 F 63 15 110/74 97
10/16/23 04:33 10/16/23 04:33 10/16/23 04:33 10/16/23 04:33 10/16/23 04:33
CT Intake/Output/Weight
10/15/23 10/15/23 10/16/23
06:59 18:59 06:59
Intake Total 154.2 / 1340.6 763.5 / 973.5 210 / 973.5
Output Total 480 / 1265 1055 / 1170 115 / 1170
Balance -325.8 / 75.6 -291.5 / -196.5 95 / -196.5
SaO2: 97 (2L)
Physical Exam
-
General: Awake, Oriented and AOx3
Cardiovascular: No Murmurs, Rub (from pericarditis) and No Gallop
Respiratory: Decreased Breath Sounds (at bases, otherwise clear)
Sternum: Stable
Incision: Clean, Dry, Intact and Dressing Intact
Extremities: No Edema
Data Reviewed
-
Lab Results: Results Reviewed
Medications: Active Meds Reviewed
Chest X-Ray: Report Reviewed and Image Reviewed
ECG: Report Reviewed and Image Reviewed
[2023-10-16 05:09] LABS: Hemoglobin 11.3 g/dL (13.0-18.0); Mean Corp Hgb Conc. 34.2 g/dL (33.0-37.0); Mean Corpuscular Volume 78.9 fL (80.0-94.0); Mean Platelet Volume 10.7 fL (7.4-10.4); Platelet Count 157 10^3/uL (130-400); Red Blood Cell Count 4.18 10^6/uL (4.70-6.10); Red Cell Dist. Width 14.1 % (11.5-14.5); White Blood Cell Count 14.4 10^3/uL (4.8-10.8)
[2023-10-16 05:34] LABS: Blood Urea Nitrogen 28 mg/dl (9-20); Calcium 9.1 mg/dl (8.4-10.2); Carbon Dioxide 30 mmol/L (22-30); Chloride 100 mmol/L (98-107); Estimated Creatinine Clearance 104 ml/min; Glucose 118 mg/dl (70-99); Magnesium 2.1 mg/dl (1.6-2.3); Potassium 4.2 mmol/L (3.5-5.1); Sodium 135 mmol/L (135-145); eGFR > 60.00
[2023-10-16] MEDS: TORADOL 15 MG IV ×2 (07:02)
[2023-10-16] MEDS: TYLENOL 1000 MG PO ×3 (07:03→22:28)
--- NOTE | 2023-10-16 07:30 | PTCARENOTE ---
Toradol and Tylenol given as scheduled. Report to SHELLEY Sainz.
[2023-10-16] MEDS: PROTONIX 40 MG PO (08:18)
[2023-10-16] MEDS: LIDOCAINE 4% PATCH 1 PATCH TOPICAL (08:18)
[2023-10-16] MEDS: ROXICODONE 5 MG PO (08:18)
[2023-10-16] MEDS: LOW STRENGTH ASPIRIN 81 MG PO (08:18)
[2023-10-16] MEDS: NEURONTIN 100 MG PO ×3 (08:18→22:28)
[2023-10-16] MEDS: SENOKOT-S 1 TABLET PO ×2 (08:19→20:05)
[2023-10-16] MEDS: MAGNESIUM OXIDE 500 MG PO ×2 (08:19→20:05)
[2023-10-16] MEDS: COLCHICINE 0.3 MG PO (08:19)
[2023-10-16] MEDS: VITAMIN C 500 MG PO (08:19)
[2023-10-16] MEDS: TOPROL XL 12.5 MG PO (08:19)
[2023-10-16] MEDS: BACTROBAN 2% OINTMENT 1 APPLIC NASAL ×2 (08:20→20:05)
--- NOTE | 2023-10-16 08:23 | W.PN.CARDCBS ---
Today's Communication / Plan
-
Cont post op care
Impression / Plan
-
.
PCP: Dr. Jaramillo
Cardiology: Dr. PONCHO Simmons
Impression:
s/p radical mitral valve repair via mini thoracotomy for myxomatous mitral valve with severe MR and prolapse 10/14/23
No obstructive CAD by cath 09/26/23
Hx HTN
NELSON 09/26/2023: EF 65%, normal regional wall motion, no thrombus detected in the left AAA, severe prolapse of the posterior mitral leaflet at P2/P3 junction with a torn cord, severe eccentric MR with peak E wave velocity 1.1 m/sec, mild aortic
regurgitation, mild TR, small pericardial effusion
Plan:
-Patient was seen as a new patient by Dr. Simmons in the office 08/28/23 for new murmur hear by his PCP in late May, no murmur was heard at a previous appointment in April. Patient was then sent for an echo and found to have severe MR with partial
flail. Patient then had a NELSON and was seen as an outpatient in the CT surgery team office. Patient presented to for elective mitral valve repair 10/14/23 and cardiology will follow post-op.
Continues to improve
Cont post op care
Echo prior to d/c as per CT surgery.
Hb down slightly, had received 1 unit PRBCs.
Cont to monitor H/H
Discussed with nursing
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
Subjective
Date of Service: October 16, 2023
Pt seen and examined. No complaints. No chest pain or shortness of breath.
Objective
Labs:
10/16/23 04:39
10/16/23 04:39
Labs
Hgb 11.3 g/dL (13.0-18.0) L 10/16/23 04:39
Hct 33.0 % (39.0-52.0) L 10/16/23 04:39
Plt Count 157 10^3/uL (130-400) 10/16/23 04:39
PT 16.8 Sec (11.4-14.6) H 10/14/23 11:32
INR 1.38 10/14/23 11:32
APTT 29.0 Sec (23.4-35.0) 10/14/23 11:32
Sodium 135 mmol/L (135-145) 10/16/23 04:39
Potassium 4.2 mmol/L (3.5-5.1) 10/16/23 04:39
BUN 28 mg/dl (9-20) H 10/16/23 04:39
Creatinine 1.0 mg/dL (0.7-1.3) 10/16/23 04:39
Glucose 118 mg/dl (70-99) H 10/16/23 04:39
Vital Signs and I&O:
Vital Signs
Temp Pulse Resp BP Pulse Ox
98.1 F 63 16 110/72 97
10/16/23 07:51 10/16/23 08:00 10/16/23 07:51 10/16/23 07:48 10/16/23 07:51
Vital Signs
Temp Pulse Resp BP Pulse Ox
98.1 F 63 16 110/72 97
10/16/23 07:51 10/16/23 08:00 10/16/23 07:51 10/16/23 07:48 10/16/23 07:51
Intake & Output
10/14/23 10/15/23 10/16/23 10/17/23
06:59 06:59 06:59 06:59
Intake Total 1340.6 / 1340.6 993.5 / 993.5
Output Total 1265 / 1265 1795 / 1795
Balance 75.6 / 75.6 -801.5 / -801.5
Physical Exam
Physical Exam
General: No acute distress, AAOX3
Neck: Negative JVD
Heart: Regular, Negative S3 positive S1/S2, Negative S4, No murmur
Lungs: CTA b/l, negative wheezes/rales/rhonchi
Abd: Positive BS, NT/ND, neg rebound/rigidity/guarding
Ext: Negative cyanosis/clubbing/edema
Neuro: nonfocal
[2023-10-16] MEDS: KCL 20 MEQ PO (08:27)
[2023-10-16] MEDS: LASIX 40 MG IV (08:27)
--- NOTE | 2023-10-16 08:58 | PTCARENOTE ---
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 NSR via cm, SaO2 @ 96% on RA. RIJ Cordis w/kvo infusing. Epicardial V-wire to pulse generator, no spikes noted. R lat chest tube
to -20cm suction, no air leak noted. All procedural sites stable. Patient assisted oob to chair, standing scale weight obtained. Patient updated to plan of care for the day, in agreement. See worklist for full assessment and interventions performed.
[2023-10-16] MEDS: NSS 500 IV (11:32)
--- NOTE | 2023-10-16 11:37 | PTCARENOTE ---
VS obtained, assessment stable. Patient resting oob in chair. Ambulated green w/CR.
[2023-10-16] MEDS: FERRLECIT 110 MG IV (14:05)
--- NOTE | 2023-10-16 15:02 | CM ---
CM following for DC planning needs.
Reviewed initial assessment. Pt. from home w/ spouse. Functionally, patient is indep. at baseline w/ ADLs, mobility.
Anticipated DC plan is for home with CT Transitional Care RN.
CM will cont. to follow.
--- NOTE | 2023-10-16 15:44 | PTCARENOTE ---
VS obtained, assessment stable. Patient resting oob, states pain controlled at this time. at bedside, watching TV.
--- NOTE | 2023-10-16 20:00 | PTCARENOTE ---
Report received from Emeli ROSA. Pt assessed. VS done. See flowsheet. Pt awake, alert, oriented x 4. Speech clear. Pt on room air in bed. Sats 93%. BBS present. Decreased to B bases. CDB and IS encouraged. IS peak 1000 mls. Audible heart tones. Pt
in SR, 70's. For wound assessments, see flowsheets. V wire insulated to chest, not attached to pacer. Temp pacer at bedside. Palpable pulses. (see flowsheet). Belly soft, nontender. Normoactive bowel sounds x 4. Pt has not had a BM yet. Pt given CHG
bath. Face washed, pt brushed his teeth. New gown provided. States CP is much better after R CT removed. Incisional pain 03/06. Ongoing plan of care.
--- NOTE | 2023-10-16 22:30 | PTCARENOTE ---
VS done. See flowsheet. Meds given as scheduled. Continues to c/o mild, incisional pain to R chest, 03/06. Tylenol and gabapentin given as scheduled. Pt attempting to go to sleep for the evening.
[2023-10-17 03:00] VITALS: BP 114/76
--- NOTE | 2023-10-17 03:21 | W.PN.CT ---
Today's Communication / Plan
-
Plan:
-No major issues overnight. Hemodynamically and neurologically intact, no complaints
-Off all drips
-Cont. current meds (ASA, Colchicine, Toprol XL 12.5 mg qd); Amiodarone on hold given bradycardia
-Maintain temporary V wires (will pull before d/c home)
-Echo today to assess MV Repair prior to d/c home
-2v-CXR today
-Encourage use of IS
-OOB into chair/Ambulate
-possible d/c soon
Assessment / Plan
-
Assessment:
-S/P Right mini thoracotomy with right femoral artery and vein cannulation under NELSON guidance/Radical mitral valve repair (quadrangular resection of the medial portion of P2 on to P3 with primary repair, cleft closure between P1 and P2, 40 mm band
annuloplasty), by Dr. Desai, 10/14/23, pod#3
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
-LVEF 65% per echo 09/26/23, 55-60% per intraop NELSON
-Small pericardial effusion per echo 09/26/23; no pericardial effusion per intraop NELSON
-HTN
-Sinus bradycardia per ekg 10/08/23
-Incidental findings on CT from 10/09/23: small right fissure pulmonary nodules (2.8-4.4 mm), small left adrenal nodule (7mm), B/L renal cysts
-Diverticulosis
-Colon polyps S/P hepatic flexure and sigmoid polypectomies (tubular adenoma), 09/02/23
-S/P Left ACL Repair, 08/22/21
-Acute postop blood loss/Anemia (received 500cc of cell saver blood intraop)
-Acute postop atelectasis
-Acute postop hypovolemia with subsequent hypervolemia
-Acute postop sinus bradycardia (as low as 53 bpm)
-Acute postop ekg changes c/w acute pericarditis (+rub)
Discussed patient care with: Nursing and Care Team
Subjective
Procedure
S/P Right mini thoracotomy with right femoral artery and vein cannulation under NELSON guidance/Radical mitral valve repair (quadrangular resection of the medial portion of P2 on to P3 with primary repair, cleft closure between P1 and P2, 40 mm band
annuloplasty), by Dr. Desai, 10/14/23
-
Date of Service: October 17, 2023
Objective Data
-
PT 16.8 Sec (11.4-14.6) H 10/14/23 11:32
INR 1.38 10/14/23 11:32
APTT 29.0 Sec (23.4-35.0) 10/14/23 11:32
Vital Signs
Vital Signs
Temp Pulse Resp BP Pulse Ox
98.7 F 72 16 121/81 95
10/16/23 22:24 10/16/23 23:00 10/16/23 22:24 10/16/23 22:24 10/16/23 22:30
CT Intake/Output/Weight
10/16/23 10/16/23 10/17/23
06:59 18:59 06:59
Intake Total 230 / 993.5 700 / 730 30 / 730
Output Total 740 / 1795 1305 / 1705 400 / 1705
Balance -510 / -801.5 -605 / -975 -370 / -975
SaO2: 95
Physical Exam
-
General: Awake, Oriented and AOx3
Cardiovascular: No Murmurs, Rub (from pericarditis) and No Gallop
Respiratory: Decreased Breath Sounds (at bases, otherwise clear)
Sternum: Stable
Incision: Clean, Dry, Intact and Dressing Intact
Extremities: No Edema b/l, 1+ DPs b/l
Data Reviewed
-
Lab Results: Results Reviewed
Medications: Active Meds Reviewed
Chest X-Ray: Report Reviewed and Image Reviewed
ECG: Report Reviewed and Image Reviewed
--- NOTE | 2023-10-17 03:30 | PTCARENOTE ---
VS done. Labs drawn and sent. Pt without c/o pain. Remains in SR. Sats 95% on 1 L/NC while sleeping.
[2023-10-17 04:17] LABS: Hematocrit 33.7 % (39.0-52.0); Hemoglobin 11.3 g/dL (13.0-18.0); Mean Corp Hgb Conc. 33.5 g/dL (33.0-37.0); Mean Corpuscular Hgb 27.2 pg (27.0-31.0); Mean Corpuscular Volume 81.2 fL (80.0-94.0); Mean Platelet Volume 10.6 fL (7.4-10.4); Platelet Count 149 10^3/uL (130-400); Red Blood Cell Count 4.15 10^6/uL (4.70-6.10); Red Cell Dist. Width 13.6 % (11.5-14.5); White Blood Cell Count 9.1 10^3/uL (4.8-10.8)
[2023-10-17 04:37] LABS: Blood Urea Nitrogen 20 mg/dl (9-20); Calcium 8.9 mg/dl (8.4-10.2); Carbon Dioxide 32 mmol/L (22-30); Chloride 100 mmol/L (98-107); Estimated Creatinine Clearance > 125 ml/min; Glucose 109 mg/dl (70-99); Potassium 4.4 mmol/L (3.5-5.1); Sodium 137 mmol/L (135-145); eGFR > 60.00
[2023-10-17] MEDS: TYLENOL 1000 MG PO (06:28)
[2023-10-17 06:38] VITALS: BMI 24.0
--- NOTE | 2023-10-17 06:47 | PTCARENOTE ---
Pt helped up to standing, weighed, then assisted to recliner chair. Scheduled Tylenol given. Pt remains in SR. On room air while in chair. Performed CDB exercises and IS.
--- NOTE | 2023-10-17 07:49 | W.DCSUMMARY ---
Discharge Summary
Discharge Data
Date of Admission: 10/14/23
Date of Discharge: 10/17/23
-
Pending Results: No
Hospital Course
Primary care physician: Azam Jaramillo
Outpatient food service substitute: Anthony Simmons
Inpatient consultants: [facility] Cardiology
Procedures:
1. Radical mitral valve repair
Primary Diagnosis:
1. Myxomatous mitral valve degeneration with severe mitral valve insufficiency secondary to prolapse and multiple torn cords
Secondary Diagnoses:
1. Hypertension
2. Colon polyps S/P hepatic flexure and sigmoid polypectomies (tubular adenoma), 09/02/23
3. Left ACL Repair, 08/22/21
4. Acute surgical blood loss anemia-expected
5. Acute postop sinus bradycardia
6. Acute post-op pericarditis
HPI: 53-year-old male electively admitted on 10/14/2023 for mitral valve repair due to nonrheumatic severe mitral regurgitation with prolapse of posterior mitral valve leaflet.
Hospital course: Patient underwent radical mitral valve repair (quadrangular resection of the medial portion of P2 on to P3 with primary repair, cleft closure between P1 and P2, #40 mm band annuloplasty) via right thoracotomy [facility] with
Lopez Desai. Intraoperative NELSON reported ejection fraction of 55-60% with no MR postrepair. Patient extubated in the operating room and returned to CVICU on Levophed and was mildly acidotic. One amp of bicarb was given. Patient was weaned off
pressor support and received a total of 750 mL of lactated Ringer's. Patient developed pericarditis and was given colchicine, which will continue for 1 month postoperative. Amiodarone was discontinued due to postop bradycardia. Patient was
diuresed and chest tubes were discontinued on postoperative day #2. On postoperative day #3, right IJ cordis was discontinued and pacer wires clipped. A 2 view x-ray reported small right pleural effusion and transitional nurses were notified of
need for a follow-up chest x-ray in 1 week to compare right pleural effusion. A prescription for Lasix 20 mg daily x 5 days was electronically sent to patient's pharmacy. A pre-discharge echocardiogram was completed and reported an EF of 45-50%
and a mitral valve mean gradient of 2 mmHg. No MR and trace TR. Patient will be discharged home on multimodal pain therapy including gabapentin, Tylenol, Flexeril, and narcotic. Patient instructed on importance of antibiotic prophylaxis prior to
dental and other invasive procedures.
Home medication changes:
Discharge Plan
-
Patient Disposition: Home (Routine Discharge)
Discharge Diagnosis/Procedures: mitral regurgitation/mitral repair
Condition: Good
Diet: No restrictions
Activity: No strenuous activity
Driving Restrictions: No driving for 2 weeks
Bathing Restrictions: OK to Shower
Others Tests: CXR in 1 week (compare R pleural effusion)
Other Services: Cardiac Rehab
Specialty Instructions: Weigh Daily- Call MD for wt gain/loss 3 lbs overnight/5 lbs in 1 week
Activity Restrictions/Additional Instructions:
Instruct your medical and dental providers that you have a mitral valve repair. You will need lifelong antibiotic prophylaxis prior to dental and invasive procedures
Referrals:
CT Transitional Care Nurse [Outside] (The Cardiothoracic Transitional Care Nurse will call you to set up a visit in 1-2 days.)
[facility] Cardiac Rehab [Outside] - 11/18/23 9:30 am
(Cardiac Rehab Orientation appointment is on 11/18/2023 at 9:30 AM
The Cardiac Rehab gym is located on the first floor of the [facility].)
Azam Jaramillo MD [Family Provider] -
Anthony Simmons MD [Active] - 12/02/23 8:40 am
(Please note: This appointment will be at the [facility] located at [address] [place] [address] [place] [address].
Please note: Your appointment on 11/[address] Simmons and moved to this one. )
Lopez Desai MD [Active] - 11/14/23 2:45 pm
Prescriptions:
New
cyclobenzaprine 10 mg Tablet
5 mg PO Q8HPRN PRN (Reason: muscle spasm) Qty: 20 0RF
acetaminophen [Tylenol Extra Strength] 500 mg Tablet
1,000 mg PO TID@0600,1400,2200 Qty: 0 0RF
aspirin 81 mg Tablet,Chewable
81 mg PO DAILY Qty: 0 0RF
gabapentin 100 mg Capsule
100 mg PO TID Qty: 30 0RF
metoprolol succinate 25 mg Tablet Extended Release 24 Hr
12.5 mg PO DAILY Qty: 30 0RF
colchicine 0.6 mg Tablet
0.3 mg PO DAILY Qty: 30 0RF
oxycodone 5 mg Tablet
5 mg PO Q4HPRN PRN (Reason: severe pain) Qty: 30 0RF
furosemide [Lasix] 20 mg tablet
20 mg PO DAILY Qty: 5 0RF
Discharge Orders:
Discharge Patient (As Directed); Ordered 10/17/23
Ordered By: Shyanne Jarquin
Care Plan Goals
Care Plan Goals:
Problem: Readiness for enhanced knowledge related to diagnosis and treatment plan
Goal: Understand your diagnosis and treatment plan needs, including medications if applicable.
Instructions: Know your diagnosis, underlying causes and treatment plan options, including medications if applicable. Consult with your health care team to learn about your diagnosis and treatment plan, including medications if applicable.
Discharge Date and Time
Print Language: TAJIK
--- NOTE | 2023-10-17 08:00 | PTCARENOTE ---
pt received from previous RN, oriented, OOB in chair. SR on the monitor, HR 60-70s. V wire insulated. SBP 120s. palpable pulses. pt on RA, 94% POX. lungs clear, diminished in R base. IS encouraged. pt ambulates independently. voids. +BS, no BM yet.
diet tolerated well. 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 RIJ cordis maintained. PIV. see worklist for VS, I&O, and assessment.
[2023-10-17 08:06] VITALS: BP 125/76
[2023-10-17] MEDS: NSS IV (08:11)
[2023-10-17] MEDS: COLCHICINE 0.3 MG PO (08:32)
[2023-10-17] MEDS: LOW STRENGTH ASPIRIN 81 MG PO (08:33)
[2023-10-17] MEDS: FLEXERIL 5 MG PO (08:33)
[2023-10-17] MEDS: NEURONTIN 100 MG PO (08:33)
[2023-10-17] MEDS: BACTROBAN 2% OINTMENT 1 APPLIC NASAL (08:33)
[2023-10-17] MEDS: PROTONIX 40 MG PO (08:33)
[2023-10-17] MEDS: MAGNESIUM OXIDE 500 MG PO (08:33)
[2023-10-17] MEDS: SENOKOT-S 1 TABLET PO (08:33)
[2023-10-17] MEDS: TOPROL XL 12.5 MG PO (08:33)
[2023-10-17] MEDS: VITAMIN C 500 MG PO (08:33)
--- NOTE | 2023-10-17 09:17 | W.PN.UPDATE ---
Update Note
Progress Note Update
No requirements for pacing postoperatively. Site cleansed, suture removed, and 2 ventricular wires were clipped to skin level (as patient was [facility] approach).
--- NOTE | 2023-10-17 10:04 | PTCARENOTE ---
pt placed back to bed, V wire cut w/ JUNIOR HIGH MATH TEACHER as ordered. RIJ cordis dc'd as ordered, dressing c/d/i. Echo completed.
[2023-10-17 10:16] VITALS: BP 122/83
[2023-10-17 10:22] VITALS: BP 137/85
[2023-10-17] MEDS: LIDOCAINE 4% PATCH TOPICAL (10:25)
[2023-10-17 11:19] VITALS: BP 122/83; BP 137/85; PULSE 75; O2SAT 96; O2SAT 97
--- NOTE | 2023-10-17 12:05 | CM ---
CM following for DC planning needs.
Patient is POD#3 and is for DC to home today.
Met w/ patient and spoke w/ spouse.
Patient feels well and plan is for home w/ CT Transitional Care RN.
[2023-10-17 12:10] VITALS: BP 126/77
--- NOTE | 2023-10-17 12:31 | PTCARENOTE ---
pt VSS, no changes in assessment. at bedside.
--- NOTE | 2023-10-17 12:55 | W.PN.CARDCBS ---
Addendum entered and electronically signed by Beau Santos MD 10/17/23 18:07:
I saw and examined the patient.
The Resin Mixer's note was reviewed and I agree with the note.
Comment:
GEN: No distress, awake, Ox3
HEENT: supple, anicteric, mmm
LUNGS: CTA, no wheezes/rales
CV: Reg, S1/S2,no murmur
ABD: soft, BS+, NT/ND
EXT: No edema
NEURO: Gross non-focal
SKIN: No rash
Plan:
Overall doing well status post mitral valve repair. Echo today with stable mitral valve with no significant mitral regurgitation and gradient of 2.
okay for discharge.
Original Note:
Today's Communication / Plan
-
Echo stable
Cards f/u arranged
Impression / Plan
-
PCP: Dr. Jaramillo
Cardiology: Dr. PONCHO Simmons
Impression:
s/p radical mitral valve repair via mini thoracotomy for myxomatous mitral valve with severe MR and prolapse 10/14/23
No obstructive CAD by cath 09/26/23
Hx HTN
NELSON 09/26/2023: EF 65%, normal regional wall motion, no thrombus detected in the left AAA, severe prolapse of the posterior mitral leaflet at P2/P3 junction with a torn cord, severe eccentric MR with peak E wave velocity 1.1 m/sec, mild aortic
regurgitation, mild TR, small pericardial effusion
Echo 10/17/23: EF 45-50%, mild conc LVH, s/p mitral valve repair with mean gradient 2 mmHg and no MR seen
Plan:
-Follow up echo 10/17/23 is stable with no evidence of MR and mean gradient is 2
-HD stable post-op
-Cardiology f/u arranged
HPI: Patient was seen as a new patient by Dr. Simmons in the office 08/28/23 for new murmur hear by his PCP in late May, no murmur was heard at a previous appointment in April. Patient was then sent for an echo and found to have severe MR with partial
flail. Patient then had a NELSON and was seen as an outpatient in the CT surgery team office. Patient presented to for elective mitral valve repair 10/14/23 and cardiology will follow post-op.
Progress Note - Toeing Stockings
Subjective
Date of Service: October 17, 2023
Feels well and wants to go home
Objective
Labs:
10/17/23 03:49
10/17/23 03:49
Labs
Hgb 11.3 g/dL (13.0-18.0) L 10/17/23 03:49
Hct 33.7 % (39.0-52.0) L 10/17/23 03:49
Plt Count 149 10^3/uL (130-400) 10/17/23 03:49
PT 16.8 Sec (11.4-14.6) H 10/14/23 11:32
INR 1.38 10/14/23 11:32
APTT 29.0 Sec (23.4-35.0) 10/14/23 11:32
Sodium 137 mmol/L (135-145) 10/17/23 03:49
Potassium 4.4 mmol/L (3.5-5.1) 10/17/23 03:49
BUN 20 mg/dl (9-20) 10/17/23 03:49
Creatinine 0.8 mg/dL (0.7-1.3) 10/17/23 03:49
Glucose 109 mg/dl (70-99) H 10/17/23 03:49
Vital Signs and I&O:
Vital Signs
Temp Pulse Resp BP Pulse Ox
97.4 F 74 16 126/77 97
10/17/23 12:12 10/17/23 12:10 10/17/23 12:12 10/17/23 12:10 10/17/23 12:12
Vital Signs
Temp Pulse Resp BP Pulse Ox
97.4 F 74 16 126/77 97
10/17/23 12:12 10/17/23 12:10 10/17/23 12:12 10/17/23 12:10 10/17/23 12:12
Intake & Output
10/15/23 10/16/23 10/17/23 10/18/23
06:59 06:59 06:59 06:59
Intake Total 1340.6 / 1340.6 993.5 / 993.5 810 / 810
Output Total 1265 / 1265 1795 / 1795 2004 / 2004 800 / 800
Balance 75.6 / 75.6 -801.5 / -801.5 -1195 / -1195 -790 / -790
Physical Exam
Physical Exam
GEN: AAOx3
HEENT: mmm
LUNGS: No audible wheeze
CV: SR on tele
EXT: No edema
NEURO: Gross non-focal
--- NOTE | 2023-10-17 13:56 | PTCARENOTE ---
pt discharged home w/ . discharge instructions reviewed w/ patient and , home meds reviewed. CXR script given. IV and tele dc'd. dressings removed. pt showered independently. dressed self. pt left w/ all belongings via wheelchair w/
volunteer escort.
== END 2023-10-17 14:10 | disposition home or self-care (01) | DRG 219 ==
LOC: CVICU 05:08
PROVIDERS: Clinical Nurse Specialist Acute Care; ADMITTING PHYSICIAN Thoracic Surgery (Cardiothoracic Vascular Surgery); CONSULT PHYSICIAN Internal Medicine Critical Care Medicine; FAMILY PHYSICIAN Family Medicine
PROC: 5A1221Z Performance of Cardiac Output, Continuous (ICD-10-PCS; 2023-10-14)
PROC: 02UG0JZ Supplement Mitral Valve with Synthetic Substitute, Open Approach (ICD-10-PCS; 2023-10-14)
PROC: B24BZZ4 Ultrasonography of Heart with Aorta, Transesophageal (ICD-10-PCS; 2023-10-14)
PROC: 02BG0ZZ Excision of Mitral Valve, Open Approach (ICD-10-PCS; 2023-10-14)
DX: I34.0 Nonrheumatic mitral (valve) insufficiency (principal); I51.1 Rupture of chordae tendineae, not elsewhere classified; J96.02 Acute respiratory failure with hypercapnia; D62 Acute posthemorrhagic anemia; I30.9 Acute pericarditis, unspecified; E87.20 Acidosis, unspecified; J90 Pleural effusion, not elsewhere classified; J98.11 Atelectasis; I10 Essential (primary) hypertension; R73.9 Hyperglycemia, unspecified; R00.1 Bradycardia, unspecified; I95.81 Postprocedural hypotension; E86.1 Hypovolemia; E87.70 Fluid overload, unspecified; Z86.010 Personal history of colon polyps; Z82.49 Family history of ischemic heart disease and other diseases of the circulatory system
CPT/HCPCS: 88305; 36415; 71045; 71046; 80048; 80053; 81003; 81015; 82248; 82330; 82565; 82805; 82810; 82947; 82962; 83036; 83735; 84132; 84302; 84520; 85014; 85018; 85025; 85027; 85049; 85610; 85730; 86850; 86900; 86901; 86920; 87070; 93005; 93306; 93312; 93320; 93325; J2916; P9045; P9047

== ENCOUNTER → 2023-10-24 11:12 | Outpatient (REF) | payer BC, SELFPAY | LOC: RAD 11:12 | PROVIDERS: ATTENDING PHYSICIAN Thoracic Surgery (Cardiothoracic Vascular Surgery); FAMILY PHYSICIAN Family Medicine; REFERRING PHYSICIAN Internal Medicine Cardiovascular Disease | DX: J90 Pleural effusion, not elsewhere classified (principal) | CPT/HCPCS: 71046 ==

== ENCOUNTER 2023-11-25 08:59 | Outpatient (RCR) | payer BC, SELFPAY | END 2023-11-25 23:59 | disposition home or self-care (01) | LOC: CRHB 08:59 | PROVIDERS: ATTENDING PHYSICIAN Internal Medicine Cardiovascular Disease; FAMILY PHYSICIAN Family Medicine | DX: Z95.4 Presence of other heart-valve replacement (principal) | CPT/HCPCS: 93798 ==

== ENCOUNTER 2023-12-06 08:46 | Outpatient (RCR) | payer BC, SELFPAY | END 2023-12-06 23:59 | disposition home or self-care (01) | LOC: CRHB 08:46 | PROVIDERS: ATTENDING PHYSICIAN Internal Medicine Cardiovascular Disease; FAMILY PHYSICIAN Family Medicine | DX: Z95.4 Presence of other heart-valve replacement (principal) | CPT/HCPCS: 93798 ==

== ENCOUNTER → 2024-05-04 07:14 | Outpatient (REF) | payer BC, SELFPAY | LOC: RCS 07:14 | PROVIDERS: ATTENDING PHYSICIAN Thoracic Surgery (Cardiothoracic Vascular Surgery); FAMILY PHYSICIAN Family Medicine | DX: Z98.890 Other specified postprocedural states (principal) | CPT/HCPCS: 93306 ==

== ENCOUNTER 2024-06-08 06:18 | Day surgery (SDC) | payer BC, SELFPAY | END 2024-06-08 12:32 | disposition home or self-care (01) | LOC: GI 06:18 | PROVIDERS: ATTENDING PHYSICIAN Internal Medicine | DX: Z12.11 Encounter for screening for malignant neoplasm of colon (principal); K64.9 Unspecified hemorrhoids; Z86.0101 Personal history of adenomatous and serrated colon polyps | CPT/HCPCS: G0105 ==

== ENCOUNTER → 2024-11-05 13:54 | Outpatient (REF) | payer BC, SELFPAY | LOC: RCS 13:54 | PROVIDERS: ATTENDING PHYSICIAN Thoracic Surgery (Cardiothoracic Vascular Surgery); FAMILY PHYSICIAN Family Medicine | DX: Z98.890 Other specified postprocedural states (principal) | CPT/HCPCS: 93306 ==